=== PATIENT | female | born 1995 | race Caucasian/White ===

== ENCOUNTER 2017-04-29 13:07 | Emergency (ER) | payer OTHER ==
[~2017-04-29] VITALS: Ht 160 cm; Wt 81.8 kg
[2017-04-29] MEDS ORDERED: IBUPROFEN 800 MG TABLET PO ONE (16:15)
[2017-04-29 16:52] VITALS: BP 140/90
== END 2017-04-29 16:56 | disposition home or self-care (01) ==
LOC: EMS 13:09
DX: S60.012A Contusion of left thumb without damage to nail, initial encounter (principal); S60.041A Contusion of right ring finger without damage to nail, initial encounter; Z88.0 Allergy status to penicillin; W23.0XXA Caught, crushed, jammed, or pinched between moving objects, initial encounter; Y93.89 Activity, other specified; Y92.89 Other specified places as the place of occurrence of the external cause; Y99.8 Other external cause status
CPT/HCPCS: 99284

== ENCOUNTER 2019-07-27 16:14 | Emergency (ER) | payer OTHER ==
[~2019-07-27] VITALS: Ht 157.5 cm; Wt 96.0 kg
[2019-07-27 16:19] VITALS: BP 140/75
== END 2019-07-27 17:34 | disposition left against medical advice (07) ==
LOC: EMS 16:14
DX: F41.9 Anxiety disorder, unspecified (principal); Z53.21 Procedure and treatment not carried out due to patient leaving prior to being seen by health care provider